=== PATIENT | male | born 1995 | race African-American/Black ===

== ENCOUNTER 2020-03-31 08:12 | Emergency (ER) | payer MEDICAID ==
[~2020-03-31] VITALS: Ht 203.2 cm; Wt 114.0 kg
[2020-03-31] MEDS ORDERED: MORPHINE SULFATE 4 MG/ML CPJ (NOT FOR IM USE) IV STA (08:45)
[2020-03-31] MEDS ORDERED: ONDANSETRON HCL 4MG/2ML INJ IV STA (08:45)
[2020-03-31] MEDS ORDERED: SODIUM CHLORIDE 0.9% 1,000 ML IV ONE (08:45)
[2020-03-31] MEDS ORDERED: TETANUS, DIPHTHERIA, PERTUSSIS VAC/PF 0.5ML (>7YR OLD) IM ONE (09:15)
[2020-03-31 09:41] LABS: BASOPHILS % 2.2 % (0.0-2.0); HEMATOCRIT. 41.5 % (42.0-52.0); HEMOGLOBIN. 13.6 g/dL (14.0-18.0); MEAN CORPUSCULAR HEMOGLOBIN 27.9 pg (28.0-32.0); MEAN CORPUSCULAR VOLUME 85.3 fL (80.0-94.0); MEAN PLATELET VOLUME 8.1 fl (7.4-10.4); MONOCYTES % 14.4 % (2.0-8.0); NEUTROPHILS % 49.4 % (40.0-76.0); PLATELET 204 x1000/uL (130-400); RED BLOOD CELL COUNT 4.87 mill/uL (4.7-6.1); RED CELL DISTRIBUTION WIDTH 16.1 % (11.6-14.6)
[2020-03-31 09:46] LABS: CHLORIDE 104 mEq/L (98-107)
[2020-03-31 09:52] LABS: PROTHROMBIN TIME 10.6 sec (9.6-11.0)
[2020-03-31] MEDS ORDERED: IOHEXOL-300 100 ML BOTTLE ONE (11:29)
[2020-03-31 11:47] VITALS: BP 180/102
== END 2020-03-31 11:55 | disposition home or self-care (01) ==
LOC: ER 08:12
DX: S30.0XXA Contusion of lower back and pelvis, initial encounter (principal); S05.12XA Contusion of eyeball and orbital tissues, left eye, initial encounter; S05.11XA Contusion of eyeball and orbital tissues, right eye, initial encounter; M54.2 Cervicalgia; Y04.0XXA Assault by unarmed brawl or fight, initial encounter; Y93.89 Activity, other specified; Y92.89 Other specified places as the place of occurrence of the external cause; Y99.8 Other external cause status
CPT/HCPCS: 36415; 70450; 70486; 71045; 71260; 72125; 74177; 80053; 83690; 85025; 85610; 93005; 96361; 96374; 96375; 99285; J2270; J2405; J7030; Q9967